=== PATIENT | male | born 1990 | race Caucasian/White ===

== ENCOUNTER 2019-07-08 19:34 | Emergency (ER) | payer OTHER, MEDICAID, SELFPAY ==
[2019-07-08 19:36] VITALS: BP 145/80; PULSE 63; RESP 20; TEMP 36.8; O2SAT 100
--- NOTE | 2019-07-08 20:27 | ED_ITS ---
HPI - Dental/Oral General Chief complaint: Dental/Oral Stated complaint: facial pain Time Seen by Provider: 07/08/19 20:27 Source: patient Mode of arrival: Ambulatory Limitations: no limitations History of Present Illness HPI Narrative: This is a 28-year-old male comes in with complaint of facial pain and dental infection. Patient states he has had multiple infections in the past. I states he has pretty poor dentition he seen a dentist in been told that all of his upper teeth need to be pulled. He states he has had infections in the same location he has 1 spot on the right that he states often drains pus and blood. Been he states the left side of his face has been causing new issues. He states he has not noticed redness but that the vein seem more prominent on that side. Patient also has not had fevers documented but felt warm last night. He has not had vomiting has had some nausea. He feels like there is a little swelling down towards the neck as well. He has not any difficulty with breathing. He denies any other symptoms at this time. He states he is quite uncomfortable. He thinks he may have had a penicillin allergy when he was younger but also thinks that he may received penicillin not had any difficulties but he is unsure. He has received doxycycline and clindamycin with improvement in the past. He denies other medical problems. Related Data Previous Rx's Medication Instructions Recorded clindamycin HCl 300 mg PO Q6H #40 cap 07/08/19 Allergies Allergy/AdvReac Type Severity Reaction Status Date / Time Penicillins [PENICILLINS] Allergy Severe Anaphylaxis Verified 07/08/19 20:48 Review of Systems Review of Systems ROS Unobtainable: All systems reviewed & are unremarkable except as noted in HPI and below Patient History Social History Smoking Status: Current every day smoker Smoking Status: Current every day smoker alcohol intake frequency: 0-2 drinks per day Exam Narrative Exam Narrative: GEN: well nourished, well appearing male, alert and oriented x 3, patient appears to be in mild distress. HEENT: Atraumatic, pupils are equal round reactive to light, extraocular movements are intact, nares are clear, TMs are clear with no fluid, there is no conjunctival pallor. Throat is clear without any exudates, erythema, tonsillar enlargement or uvular deviation, severely poor dentition with multiple cracked as well as caries fall in all of his upper teeth and multiple on the lower. Patient has some mild swelling of of the right upper incisor but no fluid is expressed. He has swelling of the left cheek just above the mandible and mildly up towards his eye there is no erythema. Patient is tender to touch unable to palpate a fluid collection that can be expressed or drained. Patient has no ho arseness with normal voice. No difficulty with handling secretions. HEART: Regular rate and rhythm without murmur, clicks, rubs. LUNGS:Lungs clear to auscultation, no wheezes, rales, crackles, chest moves symmetrically ABD:bowel sounds normal, soft, non-tender, no guarding, rebound, rigidity, no masses noted, no hepatosplenomegaly MSCL: Non-tender, no muscle atrophy, muscles strength 5/5 upper and lower extremities, full range of motion, normal gait NEURO:CN 2-12 intact, sensation normal Initial Vital Signs Initial Vital Signs: Vital Signs Temperature 98.2 F 07/08/19 19:36 Pulse Rate 63 07/08/19 19:36 Respiratory Rate 20 07/08/19 19:36 Blood Pressure 145/80 H 07/08/19 19:36 Pulse Oximetry 100 07/08/19 19:36 Course Orders Ordered: Discontinued Medications Clindamycin HCl (Cleocin) 300 mg PO NOW ONE Stop: 07/08/19 20:40 Last Admin: 07/08/19 20:48 Dose: 300 mg Documented by: NAVARRO Ketorolac Tromethamine (Toradol) 60 mg IM NOW ONE Stop: 07/08/19 20:40 Last Admin: 07/08/19 20:48 Dose: 60 mg Documented by: NAVARRO Vital Signs Vital signs: Vital Signs - 8 hr 07/08/19 19:36 Temperature 98.2 F Pulse Rate [Left] 63 Respiratory Rate 20 Blood Pressure [Left Arm] 145/80 H Pulse Oximetry 100 MDM - Dental/Oral MDM Narrative Medical decision making narrative: First dose of antibiotics given in ED. Patient given strict return precautions, no sign of airway involvement at this time. Patient has seen a dentist in the past and encouraged to follow up after cellulitis and infection begin to improve. Discharge Plan Departure Patient Disposition: Home Clinical Impression: Cellulitis of face, Dental infection Discharge Date/Time: 07/08/19 21:25 Instructions: DI for Cellulitis -- Adult Activity Restrictions/Additional Instructions: Follow up with the dentist in the next week for recheck. Take antibiotics until completely gone. You may take Tylenol up to a 1000 mg every 8 hours and/or ibuprofen up to 800 mg every 8 hours as needed for pain. You may use ice to the affected area as well. Return to the ER for fevers greater 100.4 F, rapidly worsening swelling, increasing redness, drainage, worse this, muffled voice, difficulty swallowing secretions difficulty breathing or other new or concerning symptoms. Prescriptions: New clindamycin HCl 300 mg capsule 300 mg PO Q6H Qty: 40 RF: 0
[2019-07-08] MEDS: CLINDAMYCIN 150 MG CAPSULE 300 MG PO (20:48)
[2019-07-08] MEDS: KETOROLAC 60 MG/2 ML VIAL IM (20:48)
== END 2019-07-08 21:25 | disposition home or self-care (01) ==
PROVIDERS: Emergency Provider Emergency Medicine
DX: L03.211 Cellulitis of face (principal); K04.7 Periapical abscess without sinus
CPT/HCPCS: 96372; 99283; J1885

== ENCOUNTER 2020-12-06 14:31 | Emergency (ER) | payer OTHER, MEDICAID, SELFPAY ==
[2020-12-06 14:39] VITALS: BP 127/90; PULSE 79; RESP 16; TEMP 36.8; O2SAT 94; BMI 16.8
--- NOTE | 2020-12-06 19:06 | ED.DENTAL ---
HPI - Dental/Oral General Chief complaint: Dental/Oral Stated complaint: Tooth Infection, Rt Eye Swelling, Dizzy Time Seen by Provider: 12/06/20 19:06 Mode of arrival: Ambulatory History of Present Illness HPI Narrative: This is a 29-year-old male comes in with complaint of a tooth infection on the right at the 6th tooth patient states he has poor dentition. He has had similar symptoms in the past. Had a small area of swelling above the gumline under the cheek which he pushed on to try to drain into his mouth but he states it popped and seem to go upwards. He since developed more swelling in his face. He states the swelling has improved a little bit. He has not had any fevers. He has a mild headache. No vision changes. Patient states he can feel that his lymph nodes are little bit larger on the right side as well. He denies any other issues. He does have some pain but defers anything for pain control. Patient's goal is to receive antibiotics. He does have a goal to follow-up with a dentist to have multiple teeth extracted but notes that they would not follow-up with him at this time as he is currently infected. Patient denies any other medical issues. His allergies list penicillin as anaphylaxis but he states he has had a shot of penicillin in the recent past and had no reaction. Related Data Previous Rx's Medication Instructions Recorded clindamycin HCl 300 mg capsule 300 mg PO Q6H #40 cap 07/08/19 clindamycin HCl 300 mg capsule 300 mg PO Q6H #40 cap 12/06/20 Allergies Allergy/AdvReac Type Severity Reaction Status Date / Time Penicillins [PENICILLINS] Allergy Severe Anaphylaxis Verified 07/08/19 20:48 Review of Systems Review of Systems ROS Unobtainable: All systems reviewed & are unremarkable except as noted in HPI and below Patient History Social History Smoking Status: Current every day smoker Smoking Status: Current every day smoker alcohol intake frequency: 0-2 drinks per day Exam Narrative Exam Narrative: GEN: well nourished, well appearing male, alert and oriented x 3, patient appears to be in mild distress. HEENT: Atraumatic, pupils are equal round reactive to light, extraocular movements are intact, nares are clear, TMs are clear with no fluid, there is no conjunctival pallor. Throat is clear without any exudates, erythema, tonsillar enlargement or uvular deviation, patient has swelling of the right cheek just underneath the eye fairly mild. Patient has some mild tenderness. I am unable to visualize any swelling of the gumline or a drainable abscess. Patient does have poor dentition throughout. He has slightly enlarged lymph nodes on the right submandibular. Warmth, some mild erythema to the skin over the right cheek. HEART: Regular rate and rhythm without murmur, clicks, rubs. No carotid bruits, pulses are equal in upper and lower extremities LUNGS:Lungs clear to auscultation, no wheezes, rales, crackles, chest moves symmetrically MSCL: full range of motion NEURO:CN 2-12 intact, sensation normal Initial Vital Signs Initial Vital Signs: Vital Signs Temperature 98.2 F 12/06/20 14:39 Pulse Rate 79 12/06/20 14:39 Respiratory Rate 16 12/06/20 14:39 Blood Pressure 127/90 12/06/20 14:39 Pulse Oximetry 94 12/06/20 14:39 Course Orders Ordered: ED Orders 12/06/20 14:45 Consult to PARKING TECHNICIAN - Graphic Engineer Stat Vital Signs Vital signs: Vital Signs - 8 hr 12/06/20 14:39 Temperature 98.2 F Pulse Rate 79 Respiratory Rate 16 Blood Pressure 127/90 Pulse Oximetry 94 MDM - Dental/Oral MDM Narrative Medical decision making narrative: Patient started on antibiotics for facial cellulitis likely related to a recent dental infection. Discharge Plan Departure Patient Disposition: Home Clinical Impression: Cellulitis of face Instructions: DI for Cellulitis -- Adult Activity Restrictions/Additional Instructions: Follow up with the dentist when you are able. Start antibiotics tonight take until completely gone. Prescription was sent to [facility] in [place]. You may take Tylenol up to a 1000 mg every 8 hours and or ibuprofen up to 800 mg every 8 hours. You may use ice and or heat to the affected area. Please return for fevers, rapidly worsening swelling, severe headaches, new vision changes, difficulty speech or swelling in her throat, airway, lightheadedness or passing out, persistent vomiting or other new or concerning changes. Prescriptions: New clindamycin HCl 300 mg capsule 300 mg PO Q6H Qty: 40 RF: 0 No Action clindamycin HCl 300 mg capsule 300 mg PO Q6H Qty: 40 RF: 0
--- NOTE | 2020-12-06 19:18 | PC.NURSE ---
right upper jaw pain, swelling. External swelling noted to right upper jaw and under right eye. Patient states he usually can pop a pocket of fluid and it will drain into mouth in past. This time swelling into face. Denies fevers or chills.
[2020-12-06 19:19] VITALS: BP 130/78; PULSE 79; RESP 12; TEMP 36.7; O2SAT 98
== END 2020-12-06 19:19 | disposition home or self-care (01) ==
PROVIDERS: Emergency Provider Emergency Medicine
DX: L03.211 Cellulitis of face (principal)
CPT/HCPCS: 99281